=== PATIENT | female | born 1935 | race Caucasian/White ===

== ENCOUNTER 2021-06-15 13:58 | Observation (INO) | payer OTHER ==
[2021-06-15] MEDS ORDERED: SODIUM CHLORIDE 1,000 ML IV SCH (14:00)
[2021-06-15 14:29] LABS: WHITE BLOOD COUNT 7.3 K/mm3 (4.0-10.8)
[2021-06-15 14:32] LABS: HEMATOCRIT 42.3 % (32.4-45.2)
[2021-06-15 14:34] LABS: BASO % 2.2 % (0-2.0); EOS % 1.4 % (0-4.5); HEMOGLOBIN 14.4 GM/dl (10.7-15.3); LYMPH % 38.2 % (8-40); MCH 30.3 pg (25.7-33.7); MCHC 34.1 g/dl (32.0-36.0); MEAN CELL VOLUME 88.7 fl (80-96); MEAN PLT VOLUME 7.9 fl (7.5-11.1); MONO % 9.3 % (3.8-10.2); NEUT % 48.9 % (42.8-82.8); PLATELET COUNT 280 10^3/uL (134-434); RBC 4.77 M/mm3 (3.60-5.2); RDW 12.9 % (11.6-15.6)
[2021-06-15 14:39] LABS: ANION GAP 11 MMOL/L (8-16); CALCIUM 9.1 mg/dl (8.5-10); CHLORIDE 102 mmol/L (98-107); CO2 25 mmol/L (21-32); GLUCOSE,RANDOM 128 mg/dl (74-106); SODIUM 138 mmol/L (136-145)
[2021-06-15 14:49] LABS: ALBUMIN 3.8 g/dl (3.4-5.0); ALK PHOS 102 U/L (45-117); BILIRUBIN,TOTAL 0.9 mg/dl (0.2-1); CREATININE 0.8 mg/dl (0.55-1.3); SGOT/AST 26 U/L (15-37); SGPT/ALT 28 U/L (13-61); TOT PROT 7.4 g/dl (6.4-8.2)
[2021-06-15 14:49] LABS: ACTIVATED PTT 26.1 SECONDS (25.2-36.5)
[2021-06-15 14:53] LABS: INR 1.05 (0.82-1.09); PROTHROMBIN TIME (PATIENT) 11.8 SEC (10.2-13.0)
[2021-06-15 14:53] LABS: CHOLESTEROL 168 mg/dl (50-200); HDL CHOLESTEROL 44 mg/dl (40-60); LDL CHOLESTEROL (ONLY SJRH) 97 mg/dL (5-100); TRIGLYCERIDES 136 mg/dl (0-150)
[2021-06-15 15:52] LABS: EPITHELIAL CELLS MODERATE /hpf
[2021-06-15] MEDS ORDERED: ASPIRIN 81 MG CHEWABLE TABLETS PO ONE ×2 (16:21)
[2021-06-15] MEDS ORDERED: ATORVASTATIN CA 80 MG TABLET (FP) PO ONE (16:34)
[2021-06-15] MEDS ORDERED: ATORVASTATIN CA 80 MG TABLET (FP) ONE (17:03)
[2021-06-15] MEDS ORDERED: ASPIRIN 81 MG CHEWABLE TABLETS ONE (17:03)
[2021-06-15] MEDS ORDERED: DOCUSATE SODIUM 100 MG CAPSULE (FP) PO PRN (20:50)
[2021-06-15] MEDS ORDERED: POLYETHYLENE GLYCOL (HEALTHYLAX) 3350 17 GM PACKET PO PRN (20:50)
[2021-06-15 23:17] VITALS: BMI 28.0
[2021-06-15] MEDS: HEPARIN NA (PORCINE) 5,000 UNITS/ML 1ML VIAL SQ SCH (23:33)
[2021-06-16 02:27] VITALS: PULSE 66
[2021-06-16 03:41] LABS: BASO % 0.7 % (0-2.0); EOS % 1.3 % (0-4.5); HEMATOCRIT 37.3 % (32.4-45.2); HEMOGLOBIN 12.8 GM/dL (10.7-15.3); LYMPH % 29.3 % (8-40); MCH 30.1 pg (25.7-33.7); MCHC 34.3 g/dl (32.0-36.0); MEAN CELL VOLUME 87.6 fl (80-96); MEAN PLT VOLUME 7.4 fl (7.5-11.1); MONO % 8.6 % (3.8-10.2); NEUT % 60.1 % (42.8-82.8); PLATELET COUNT 237 10^3/uL (134-434); RBC 4.26 M/mm3 (3.60-5.2); RDW 13.8 % (11.6-15.6)
[2021-06-16 04:54] LABS: CHLORIDE 109 mmol/L (98-107); SODIUM 140 mmol/L (136-145)
[2021-06-16 04:55] LABS: CALCIUM 8.4 mg/dL (8.5-10.1)
[2021-06-16 04:56] LABS: ANION GAP 6 MMOL/L (8-16); BLOOD UREA NITROGEN 9.6 mg/dL (7-18); CO2 25 mmol/L (21-32); GLUCOSE,RANDOM 90 mg/dL (74-106); MAGNESIUM 2.1 mg/dL (1.8-2.4)
[2021-06-16 04:59] LABS: CREATININE 0.7 mg/dL (0.55-1.3)
[2021-06-16 06:47] VITALS: BP 142/60; TEMP 97.6
[2021-06-16] MEDS ORDERED: ASPIRIN COATED 81 MG TABLET.EC PO SCH (10:00)
[2021-06-16] MEDS: HEPARIN NA (PORCINE) 5,000 UNITS/ML 1ML VIAL SQ SCH (10:24)
[2021-06-16] MEDS ORDERED: ATORVASTATIN CA 80 MG TABLET (FP) PO SCH (22:00)
== END 2021-06-16 14:13 | disposition home or self-care (01) ==
LOC: FER 13:58 → INTOOBSV 16:21 → FM/S 16:21
PROVIDERS: ADMIT Internal Medicine; ATTEND Nurse Practitioner Acute Care
PROC: 3E023GC Introduction of Other Therapeutic Substance into Muscle, Percutaneous Approach (ICD-10-PCS; principal; 2021-06-15)
PROC: 3E0337Z Introduction of Electrolytic and Water Balance Substance into Peripheral Vein, Percutaneous Approach (ICD-10-PCS; 2021-06-15)
DX: G45.9 Transient cerebral ischemic attack, unspecified (principal); K59.00 Constipation, unspecified; G91.9 Hydrocephalus, unspecified; Z29.9 Encounter for prophylactic measures, unspecified
CPT/HCPCS: 36415; 70450-TC; 70551-TC; 71045-TC-FY; 80048; 80053; 80061; 81003; 81015; 82550; 83036; 83605; 83735; 84484; 85025; 85610; 85730; 86850; 86870; 86900; 86901; 86902; 87040; 87086; 93005; 96372; 97116-GP; 97161-GP; 99285-25; C9803; G0378; J1644; U0003; U0005